=== PATIENT | female | born 1975 | race Hispanic/Latino ===

== ENCOUNTER 2021-02-19 07:40 | Inpatient (IN) | payer OTHER, SELFPAY ==
[2021-02-19 09:36] LABS: White Blood Cell (WBC) Count 2.1 10x3/uL (3.5-10.5)
[2021-02-19 09:37] LABS: Hemoglobin 2.3 g/dL (12.0-15.5); Mean Corpuscular HGB CONC 24.5 g/dL (32.0-36.0); Mean Corpuscular Hemoglobin 14.9 pg (27.0-33.0); Mean Platelet Volume 8.5 fl (7.4-10.4); Platelet Count 133 10x3/uL (150-450); Red Blood Cell (RBC) Count 1.54 10x6/uL (3.90-5.03)
[2021-02-19 09:42] LABS: ALT (SGPT) 11 U/L (8-55); AST (SGOT) 13 U/L (5-34); Alkaline Phosphatase 107 U/L (40-110); Anion Gap 12 mmol/L (10-20); BUN (Urea Nitrogen) 5 mg/dL (7.0-18.7); Bilirubin, Total 1.2 mg/dL (0.2-1.2); Calc. Creatinine Clearance 0 mL/min (70-130); Calcium 8.7 mg/dL (7.8-10.44); Carbon Dioxide 19 mmol/L (22-29); Chloride 108 mmol/L (98-107); Globulin 3.2 g/dL (2.4-3.5); Glucose 136 mg/dL (70-105); Potassium 3.4 mmol/L (3.5-5.1); Protein, Total 7.2 g/dL (6.0-8.3); Sodium 136 mmol/L (136-145)
[2021-02-19 09:49] LABS: MDiff Complete? YES
[2021-02-19 10:09] LABS: INR-International Normal Ratio 1.1; PTT 23.5 sec (22.0-33.0); Prothrombin Time 12.1 sec (9.5-12.1)
[2021-02-19 10:17] LABS: Iron 13 ug/dL (50-170); Iron Binding Capacity, Total 386 mcg/dL (265-497)
[2021-02-19 10:18] LABS: Eosinophils 1 % (0-10); Lymphocytes 18 % (21-51); Monocytes 5 % (0-10); Neutrophil 75 % (42-75)
[2021-02-19 10:19] LABS: Hypochromia MODERATE=16-30 cells (100X) (0-5/hpf); Microcytosis MARKED = >30 cells (100X) (0-5/hpf)
[2021-02-19 10:20] LABS: Ovalocytes SLIGHT = 2-5 cells (100X) (0-1/hpf); Platelet Morphology Comment Appears Decreased; Reflex for Review?? YES
[2021-02-19 10:30] LABS: Bilirubin Neg (Negative); Blood, Urine 10 (Negative); Clarity Clear (Clear); Glucose, Urine (Dipstick) Normal (Negative); Ketone, Urine Negative (Negative); Leukocyte Negative (Negative); Nitrite Negative (Negative); Protein, Urine (Dipstick) 15 mg/dl (Neg-Trace); Specific Gravity, Urine 1.005 (1.002-1.036)
[2021-02-19 10:44] LABS: Pregnancy Test - Urine (BHCG) Negative (Negative); Specific Gravity 1.005 (1.002-1.036)
[2021-02-19 10:45] LABS: Pregu Control Background? CLEAR/WHITE (CLR/WHITE); Pregu Control Bar Appear? YES (CONTROL BAR)
[2021-02-19 10:48] LABS: SARS-CoV-2 NAA Rapid Test Not Detected (NotDetected)
[2021-02-19 10:48] LABS: RBC/HPF 0-3 HPF (0-3); WBC/HPF 0-3 HPF (0-3)
[2021-02-19 10:49] LABS: Bacteria/HPF 2+ HPF (None Seen)
[2021-02-19] MEDS ORDERED: Senokot S 8.6-50 MG TAB PO PRN (11:17)
[2021-02-19] MEDS ORDERED: Guaifenesin DM 100-10/5 ML UDCUP PO PRN (11:17)
[2021-02-19] MEDS ORDERED: Ondansetron PF 4 MG/2 ML Vial IVP PRN (11:17)
[2021-02-19] MEDS ORDERED: diphenhydrAMINE 25 MG CAP PO PRN (11:25)
[2021-02-19] MEDS ORDERED: Iron Sucrose Complex 100 MG in Sodium Chloride 0.9% 100 ML IVPB SCH (11:30)
[2021-02-19 11:51] VITALS: BMI 22.2
[2021-02-19] MEDS ORDERED: Nicotine 7 MG PATCH TD PRN (14:00)
[2021-02-19] MEDS ORDERED: Potassium Chloride 20 MEQ TAB PO SCH (14:00)
[2021-02-19] MEDS ORDERED: Iron, Sodium Ferric Gluconate 125 MG in Sodium Chloride 0.9% 100 ML IVPB SCH (16:30)
[2021-02-19 18:33] LABS: #Eosinphils 0.1 10x3/uL (0.0-0.5); #Monocytes 0.3 10x3/uL (0.0-1.1); #Neutrophils 1.5 10x3/uL (1.5-8.4); %Basophils 0.4 % (0.0-2.0); %Eosinophils 4.4 % (0.0-6.0); %Lymphocytes 32.4 % (18.0-47.0); %Monocytes 9.5 % (0.0-10.0); %Neutrophils 52.9 % (40.0-75.0); Hemoglobin 4.9 g/dL (12.0-15.5); Mean Corpuscular HGB CONC 29.2 g/dL (32.0-36.0); Mean Corpuscular Hemoglobin 20.5 pg (27.0-33.0); Mean Corpuscular Volume 70.3 fl (81.6-98.3); Mean Platelet Volume 9.1 fl (7.4-10.4); Platelet Count 164 10x3/uL (150-450); RBC Distribution Width 25.2 % (11.5-14.5); Red Blood Cell (RBC) Count 2.39 10x6/uL (3.90-5.03); White Blood Cell (WBC) Count 2.8 10x3/uL (3.5-10.5)
[2021-02-19 20:52] LABS: Anisocytosis MODERATE=16-30 cells (100X) (0-5/hpf); Hypochromia MARKED = >30 cells (100X) (0-5/hpf); Microcytosis MODERATE=15-30 cells (100X) (0-5/hpf); Platelet Morphology Comment Appears Adequate
[2021-02-19] MEDS: Acetaminophen 325 MG TAB PO PRN (22:34)
[2021-02-20 07:46] VITALS: BP 128/60; TEMP 98.5
[2021-02-20] MEDS: Acetaminophen 325 MG TAB PO PRN (09:39)
[2021-02-20 09:44] LABS: Anion Gap 10 mmol/L (10-20); BUN (Urea Nitrogen) 6 mg/dL (7.0-18.7); Calc. Creatinine Clearance 101 mL/min (70-130); Calcium 8.5 mg/dL (7.8-10.44); Carbon Dioxide 19 mmol/L (22-29); Chloride 114 mmol/L (98-107); Glucose 104 mg/dL (70-105); Sodium 139 mmol/L (136-145)
[2021-02-20 10:04] LABS: MDiff Complete? YES
[2021-02-20 10:16] LABS: Anisocytosis MODERATE=16-30 cells (100X) (0-5/hpf); Eosinophils 6 % (0-10); Hemoglobin 7.2 g/dL (12.0-15.5); Hypochromia SLIGHT = 6-15 cells (100X) (0-5/hpf); Lymphocytes 38 % (21-51); Mean Corpuscular Hemoglobin 22.9 pg (27.0-33.0); Mean Corpuscular Volume 76.4 fl (81.6-98.3); Monocytes 4 % (0-10); Neutrophil 52 % (42-75); Ovalocytes SLIGHT = 2-5 cells (100X) (0-1/hpf); Platelet Count 138 10x3/uL (150-450); Platelet Morphology Comment Appears Adequate; RBC Distribution Width 24.7 % (11.5-14.5); Red Blood Cell (RBC) Count 3.14 10x6/uL (3.90-5.03); White Blood Cell (WBC) Count 2.7 10x3/uL (3.5-10.5)
== END 2021-02-20 11:40 | disposition home or self-care (01) | DRG 760 ==
LOC: CSHERS 07:40 → CSHPED 11:45
PROVIDERS: ADMIT Internal Medicine; ATTEND Family Medicine
PROC: 30233N1 Transfusion of Nonautologous Red Blood Cells into Peripheral Vein, Percutaneous Approach (ICD-10-PCS; principal; 2021-02-19)
PROC: 30233N1 Transfusion of Nonautologous Red Blood Cells into Peripheral Vein, Percutaneous Approach (ICD-10-PCS; 2021-02-20)
DX: N93.8 Other specified abnormal uterine and vaginal bleeding (principal); D62 Acute posthemorrhagic anemia; E87.2 Acidosis; Z20.822 Contact with and (suspected) exposure to COVID-19; E87.6 Hypokalemia; F17.210 Nicotine dependence, cigarettes, uncomplicated
CPT/HCPCS: 36415; 36430; 71045; 80048; 80053; 81003; 81015; 81025; 82728; 83540; 83550; 85007; 85025; 85027; 85060; 85610; 85730; 86850; 86900; 86901; 94760; J2916; J3490; P9016; U0002

== ENCOUNTER 2022-08-03 14:33 | Emergency (ER) | payer OTHER, SELFPAY | END 2022-08-03 15:07 | disposition home or self-care (01) | LOC: CSHERS 14:33 | DX: B35.4 Tinea corporis (principal); F17.210 Nicotine dependence, cigarettes, uncomplicated | CPT/HCPCS: 99282 ==

== ENCOUNTER 2024-07-09 13:43 | Emergency (ER) | payer SELFPAY ==
[2024-07-09] MEDS ORDERED: Ketorolac Tromethamine 30 MG (1 mL) VIAL ONE (15:08)
[2024-07-09] MEDS ORDERED: Orphenadrine Citrate 60 MG/2 ML VIAL ONE (15:14)
== END 2024-07-09 15:31 | disposition home or self-care (01) ==
LOC: CSHERS 13:43
DX: M26.602 Left temporomandibular joint disorder, unspecified (principal); F17.210 Nicotine dependence, cigarettes, uncomplicated
CPT/HCPCS: 96372; 99283; J1885; J2360